=== PATIENT | female | born 1950 | race Caucasian/White ===

== ENCOUNTER 2019-07-09 12:53 | Outpatient (CLI) | payer BC, SELFPAY ==
--- NOTE | 2019-07-09 13:02 | XR_ITS ---
WS: [id number] RIBS LEFT TECHNIQUE: 3 views left ribs CLINICAL INFORMATION: RIB PAIN, LEFT SIDED COMPARISON: None. FINDINGS: Normal left ribs. No pneumothorax. Normal cardiac silhouette. Aortic calcification. XR/XR ribs LT 2V* [id number] IMPRESSION: No visualized left rib fractures
== END 2019-07-09 12:54 | disposition home or self-care (01) ==
LOC: RADWPI 13:00
PROVIDERS: Family Provider Electrodiagnostic Medicine; PCP Electrodiagnostic Medicine; Visit Provider Electrodiagnostic Medicine
DX: R07.81 Pleurodynia (principal)
CPT/HCPCS: 71100

== ENCOUNTER 2020-03-20 14:07 | Outpatient (CLI) | payer BC, SELFPAY ==
--- NOTE | 2020-03-20 14:16 | XR_ITS ---
WS: [id number] SCREENING DEXA SCAN [place] CLINICAL INFORMATION: OSTEOPOROSIS COMPARISON: None. FINDINGS: The L1-L4 bone mineral density measures 0.900 g/cm2. This corresponds to a T score score of -2.3 and Z score of -0.5. Left femoral neck bone mineral density measures 0.612 g/cm2. This corresponds to a T score of -3.1 an d Z score of -1.7. Right femoral neck bone mineral density measures 0.621 g/cm2. This corresponds to a T score -3.1of an d Z score of -1.6. Mean femoral neck bone mineral density measures 0.616 g/cm2. This corresponds to a T score of -3.1 an d Z score of -1.6. XR/XR DEXA axial skeleton* [id number] IMPRESSION: Osteoporosis Patient's FRAX calculated 10 year probability for major osteoporotic fracture i s 28.3 % and osteoporotic hip fracture is 13.7%.
== END 2020-03-20 14:08 | disposition home or self-care (01) ==
LOC: RADWPI 14:11
PROVIDERS: PCP Electrodiagnostic Medicine; Visit Provider Electrodiagnostic Medicine
DX: M81.0 Age-related osteoporosis without current pathological fracture (principal)
CPT/HCPCS: 77080

== ENCOUNTER 2020-04-29 14:46 | Outpatient (CLI) | payer BC, SELFPAY ==
--- NOTE | 2020-04-29 14:50 | MM_ITS ---
WS: [id number] BILATERAL DIGITAL SCREENING MAMMOGRAPHY WITH CAD CLINICAL INFORMATION: SCREENING HISTORY: Screening mammogram. No current complaints. COMPARISON: TECHNIQUE: Bilateral CC and MLO views. FINDINGS: The breasts are composed of heterogeneous fibroglandular density tissue, which can limit the detectio n of small underlying mass lesions. No suspicious mass, asymmetry, calcifications, or architectural d istortion. No evidence of malignancy. Punctate and vascular calcifications. Lucent centered calcifica tions. MM/[place] [id number] IMPRESSION: BI-RADS: 2-Benign FOLLOW UP: 1 Year Follow-up Recommend return to annual screening mammography.
== END 2020-04-29 14:47 | disposition home or self-care (01) ==
LOC: RADSHAW 14:49
PROVIDERS: PCP Electrodiagnostic Medicine; Visit Provider Electrodiagnostic Medicine
DX: Z12.31 Encounter for screening mammogram for malignant neoplasm of breast (principal)
CPT/HCPCS: 77067

== ENCOUNTER 2021-04-23 11:22 | Emergency (ER) | payer BC, SELFPAY ==
[2021-04-23 11:39] VITALS: BP 166/71; PULSE 71; RESP 16; TEMP 37; O2SAT 97
--- NOTE | 2021-04-23 14:42 | W.ED.ANIMALB ---
HPI - Animal Bite General: Chief Complaint: Animal Bite Stated Complaint: animal bite Time Seen by Provider: 04/23/21 11:45 History of Present Illness: HPI narrative: Patient was bit by her cat a couple days closed her right forearm. She also has some scratches. She has some redness around the bite now. Cat shots are up-to-date. Patient has multiple antibiotic allergies. MD complaint: animal bite Onset (ago): day(s) Animal: cat Description of animal: household pet Mechanism: bite and scratch Context: playing with animal Associated symptoms: Reports no associated symptoms; Deny chills or fever(s) Review of Systems Const: Denies: fever(s) or chills Musc: Denies: extremity pain Skin/Breast: Reports: erythema (Around bite mathews) and skin tenderness COUNTS INCLUDE 234 BEDS AT THE [facility] ED PFSH: Medical History HTN (hypertension) Family History Mother Hyperlipidemia Dementia Sister Hyperlipidemia Hypothyroidism Lymphoma Cancer renal carcinoma/lymphoma Grandmother Hypothyroidism Social History Smoking and tobacco status: current every day smoker Physical Exam Const: COMMON NORMALS: no acute distress GENERAL APPEARANCE: cooperative Psych: COMMON NORMALS: mental status grossly normal Skin: OTHER: Has 3 puncture wounds to right middle forearm with surrounding superficial redness around the bite started some bruising to her dry and thin skin. No red streaks extending up the arm. Course Vital Signs: Vital signs: Vital Signs Temperature 98.6 F 04/23/21 11:39 Pulse Rate 71 04/23/21 11:39 Respiratory Rate 16 04/23/21 11:39 Blood Pressure 166/71 04/23/21 11:39 Pulse Oximetry 97 04/23/21 11:39 MDM - Animal Bite MDM Narrative: Medical decision making narrative: We will try Bactrim due to multiple allergies that she has even though it is not the best antibiotic for cat bites or is not much else that is available due to her allergies. Discharge Plan Discharge Patient Disposition: Home Clinical Impression: Cat bite Qualifiers: Encounter type: initial encounter Qualified Code(s): W55.01XA - Bitten by cat, initial encounter Condition: Stable Prescriptions: New Bactrim DS 800-160 mg tablet 1 tab PO BID 7 Days Qty: 14 RF: 0 No Action diflunisal 500 mg tablet 500 mg PO BID PRNRF: 0 nitroglycerin [Nitrostat] 0.4 mg tablet, sublingual 0.4 mg SUBLINGUAL Q5M PRNRF: 0 esomeprazole magnesium 40 mg capsule,delayed release(DR/EC) 40 mg PO DAILY RF: 0 levothyroxine 125 mcg capsule 100 mcg PO DAILY RF: 0 cetirizine [Allergy Relief (cetirizine)] 10 mg tablet 10 mg PO DAILY RF: 0 dicyclomine 10 mg capsule 10 mg PO TID PRNRF: 0 teriparatide 20 mcg/dose (750 mcg/3 mL) pen injector 20 mcg SUBCUT DAILY RF: 0 montelukast [Singulair] 10 mg tablet 10 mg PO DAILY RF: 0 vitamin E 200 unit capsule 400 unit PO DAILY RF: 0 calcium carbonate-vitamin D3 [Calcium 600 with Vitamin D3] 600 mg(1,500mg) -500 unit capsule PO RF: 0 cholecalciferol (vitamin D3) 25 mcg (1,000 unit) capsule 25 mcg PO DAILY RF: 0 vitamin A palmitate 10,000 unit tablet 10,000 unit PO DAILY RF: 0 fish,bora,flax oils-om3,6,9no1 [Triple [place] 3-6-9] 400-400-400 mg capsule 1 cap PO DAILY RF: 0 poxywwmg-anbfh-pio6-C-jonathan-bor 869-020-21-0.5 mg tablet PO RF: 0 Hyaluronic Acid (chond-collgn) 40-80-400 mg capsule PO RF: 0 astaxanthin 4 mg capsule PO RF: 0 clopidogrel 75 mg tablet 75 mg PO DAILY Qty: 90 RF: 4 lisinopril 10 mg tablet 10 mg PO DAILY Qty: 90 RF: 4 Repatha SureClick 140 mg/mL pen injector 140 mg SUBCUT .Q2W Qty: 2 RF: 11 Discharge Orders: Discharge ED (Routine); Ordered 04/23/21 Ordered By: Bolivar Zavala Referrals: Enrico Rojas DO [Primary Care Provider] - Discharge Diet: Usual diet Discharge Activity: Increase activity as tolerated Patient Instructions: Animal Bite (ED) Activity Restrictions/Additional Instructions: Follow-up with medical provider as directed. Take medications as prescribed. Return to the ER or your medical provider if condition worsens. Please read and understand discharge instructions. If any questions ask please. Watch for worsening symptoms. Bactrim is low on the list for effective antibiotics for cat bites but it is one that is used. Due to multiple out to anti-biotic allergies this would be the most appropriate antibiotic for you .so if you have worsening symptoms please return and see your family medical provider. Coding Level of Care Code ED Polymer Scientist for Kelly Gresham
== END 2021-04-23 12:06 | disposition home or self-care (01) ==
PROVIDERS: Emergency Provider Nurse Practitioner Family; PCP Electrodiagnostic Medicine
DX: S51.851A Open bite of right forearm, initial encounter (principal); W55.01XA Bitten by cat, initial encounter
CPT/HCPCS: 99281

== ENCOUNTER → 2021-10-12 15:06 | Outpatient (BNVA) | payer BC, SELFPAY | PROVIDERS: PCP Electrodiagnostic Medicine; Visit Provider Internal Medicine Cardiovascular Disease | DX: I10 Essential (primary) hypertension (principal); R07.9 Chest pain, unspecified; E78.00 Pure hypercholesterolemia, unspecified | CPT/HCPCS: 36415; 80053; 80061; 83721; 84443; 85025 ==

== ENCOUNTER → 2022-04-04 08:23 | Outpatient (BNVA) | payer MEDICARE, OTHER, BC, SELFPAY | PROVIDERS: PCP Electrodiagnostic Medicine; Referring Provider Electrodiagnostic Medicine; Visit Provider Student in an Organized Health Care Education/Training Program | DX: M65.331 Trigger finger, right middle finger (principal) | CPT/HCPCS: 73130 ==

== ENCOUNTER 2022-04-11 11:49 | Outpatient (CLI) | payer MEDICARE, BC, SELFPAY ==
[2022-04-11 13:15] LABS: Alanine Aminotransferase 7 U/L (0-33); Albumin Level 3.9 g/dL (3.5-5.2); Alkaline Phosphatase 48 U/L (35-105); Aspartate Amino Transferase 11 U/L (0-32); Chol HDL Ratio 4.29 mg/dL (0.0-4.40); Cholesterol 206 mg/dL (0-200); Globulin 3.2 g/dL (1.3-4.6); HDL Cholesterol 48 mg/dL (60-100); LDL Cholesterol Calculated 128 mg/dL (50-129); LDL Cholesterol Direct 140 mg/dL (0-100); LDL HDL Ratio 2.67 RATIO (0.00-3.22); Total Bilirubin 0.4 mg/dL (0.15-1.2); Total Protein 7.1 g/dL (6.6-8.7); Triglycerides 152 mg/dL (0-150)
== END 2022-04-11 11:50 | disposition home or self-care (01) ==
PROVIDERS: PCP Electrodiagnostic Medicine; Visit Provider Internal Medicine Cardiovascular Disease
DX: E78.00 Pure hypercholesterolemia, unspecified (principal); I10 Essential (primary) hypertension; Z86.73 Personal history of transient ischemic attack (TIA), and cerebral infarction without residual deficits
CPT/HCPCS: 36415; 80061; 80076; 83721

== ENCOUNTER 2022-04-20 05:49 | Day surgery (SDC) | payer MEDICARE, BC, OTHER, SELFPAY ==
[2022-04-19 11:50] VITALS: BMI 22.6
[2022-04-20] VITALS (9 sets, daily range): BP systolic 100–135; BP diastolic 52–75; PULSE 50–62; RESP 12–18; TEMP 36.1–36.6; O2SAT 94–100
[2022-04-20] MEDS: sodium chloride 0.9% 1,000 ML 30 ML IV (06:29)
[2022-04-20] MEDS: acetaminophen 1,000 MG/100 ML PIGGYBACK 400 MG IV (06:30)
[2022-04-20] MEDS: ketorolac 30 mg/mL INJ IVP (06:48)
[2022-04-20] MEDS: clindamycin 600 MG/50 ML PREMIX 100 MG IV (07:00)
--- NOTE | 2022-04-20 07:05 | W.PM.OPSUD ---
Surgery/Procedure H&P Update DATE OF PROCEDURE: April 20, 2022 DATE H&P PERFORMED: 04/04/22 CHANGES TO PREVIOUS DOCUMENTATION: None PREOP DIAGNOSIS: Right middle finger trigger PRIMARY INDICATION FOR PROCEDURE: Right middle finger trigger PLANNED PROCEDURE: Operation Date: 04/20/22 07:00 Proposed Procedures p Right middle Finger Trigger Finger Release 48251 M65.331(Right) - Andres Dominguez DO
--- NOTE | 2022-04-20 07:35 | P.ANESASSM_ITS ---
Pre-Anesthetic Assessment Height/Weight: Height 1.68 m Weight 63.503 kg Temp Pulse Resp BP Pulse Ox O2 Del Method 97.4 F L 62 18 135/75 100 04/20/22 06:15 04/20/22 06:15 04/20/22 06:15 04/20/22 06:15 04/20/22 06:15 04/20/22 06:36 Preop Diagnosis: Right middle finger trigger Operation Date: 04/20/22 07:00 Proposed Procedures p Right middle Finger Trigger Finger Release 52978 M65.331(Right) - Andres Alberto, Familial anesthetic complications: Delayed awakening Was Beta Sharmaine taken within 24 hours: N/A Was Clonidine taken within 24 hours: N/A Last intake: Intake Last Liquid Date 04/19/22 Last Liquid Time 18:00 Last Solid Date 04/19/22 Last Solid Time 18:00 Social No alcohol and No tobacco Exam alert, oriented x 3, clear to auscultation bilaterally and regular rate & rhythm Airway Submandibular: within normal limits Cervical ROM: within normal limits Mallampati: Class II Dentition: partials CV/HEM Hypertension GI Gastroesophageal Reflux Disease Metabolic Hyperlipidemia and Thyroid Disease [facility] [place] Fibromyalgia Neuropsych Transient Ischemic Attack Anesthetic Plan ASA status: 3 Anesthesia: Choice Medications/Allergies Home Medications Medication Instructions Recorded Confirmed Last Taken Type diflunisal 500 mg tablet 500 mg PO BID 12/16/19 04/19/22 04/19/22 History esomeprazole magnesium 40 mg 40 mg PO DAILY 12/16/19 04/19/22 04/19/22 History capsule,delayed release nitroglycerin 0.4 mg sublingual 0.4 mg sublingual Q5M PRN cp 12/16/19 04/19/22 Unknown History tablet (Nitrostat) astaxanthin 4 mg capsule 4 mg PO DAILY 12/23/20 04/19/22 04/19/22 History calcium carbonate 600 mg-vitamin cap PO 12/23/20 04/04/22 04/19/22 History D3 12.5 mcg (500 unit) capsule (Calcium 600 with Vitamin D3) cholecalciferol (vitamin D3) 25 25 mcg PO DAILY 12/23/20 04/19/22 04/19/22 History mcg (1,000 unit) capsule clopidogrel 75 mg tablet 75 mg PO DAILY #90 tabs 12/23/20 04/19/22 04/19/22 Rx dicyclomine 10 mg capsule 10 mg PO TID 12/23/20 04/19/22 04/19/22 History fish, borage, flaxseed oils-omega 1 cap PO DAILY 12/23/20 04/19/22 04/19/22 History 3,6,9 cb #1 400 mg-400 mg-400 mg cap (Triple [place] 3-6-9) glucosamine 375 qd-odbuvkhhz-trb tab PO 12/23/20 04/04/22 04/19/22 History no1 500 mg-C 15 mg-jonathan 0.5 mg tablet hyalur ac-chond sul-colg II-AA 40 cap PO 12/23/20 04/04/22 04/19/22 History mg-80 mg-400 mg capsule (Hyaluronic Acid(with chondroitin-collagenII)) levothyroxine 125 mcg capsule 100 mcg PO DAILY 12/23/20 04/19/22 04/20/22 04:15 History teriparatide 20 mcg/dose (750 20 mcg SUBCUT DAILY 12/23/20 04/19/22 04/19/22 History mcg/3 mL) subcutaneous pen injector vitamin A palmitate 10,000 unit 10,000 unit PO DAILY 12/23/20 04/19/22 04/19/22 History tablet vitamin E 200 unit capsule 400 unit PO DAILY 12/23/20 04/19/22 04/19/22 History ihppega-fxpayzcz-oytszgaeom-folic tab PO 10/12/21 04/04/22 04/19/22 History acid 0.5 mg tablet lisinopril 10 mg tablet 10 mg PO DAILY #90 tabs 12/13/21 04/19/22 04/19/22 Rx evolocumab 140 mg/mL subcutaneous 140 mg SUBCUT .Q2W #2 mL 04/18/22 04/19/22 04/06/22 Rx pen injector (Repatha SureClick) varenicline 1 mg tablet (Chantix) 1 mg PO BID 04/20/22 04/20/22 04/19/22 History Allergies Allergy/AdvReac Type Severity Reaction Status Date / Time levofloxacin Allergy Intermediate Rash Verified 04/04/22 08:24 Cephalosporins Allergy ALGY-Hives Verified 04/04/22 08:24 codeine Allergy ALGY-Hives Verified 04/04/22 08:24 doxycycline Allergy ALGY-Hives Verified 04/04/22 08:24 erythromycin base Allergy ALGY-Hives Verified 04/04/22 08:24 Penicillins Allergy ALGY-Hives Verified 04/04/22 08:24 lovastatin AdvReac ADR-Muscle Verified 04/04/22 08:24 Pain pravastatin AdvReac ADR-Muscle Verified 04/04/22 08:24 Pain risedronate sodium AdvReac ADR-Muscle Verified 04/04/22 08:24 [From Actonel] Pain rosuvastatin [From Crestor] AdvReac ADR-Muscle Verified 04/04/22 08:24 Pain simvastatin AdvReac ADR-Muscle Verified 04/04/22 08:24 Pain Current Medications Generic Name Dose Route Start Last Admin Trade Name Freq PRN Reason Stop Dose Admin Sodium Chloride 1,000 mls @ 30 mls/hr 04/20/22 06:00 04/20/22 06:29 Sodium Chloride 0.9% IV 04/21/22 05:59 30 mls/hr .Q24H GAGANDEEP Administration PFSH Anesthesia Medical History (Updated 04/04/22 @ 14:58 by Andres Dominguez DO) Fibromyalgia History of TIA (transient ischemic attack) HTN (hypertension) Hypercholesterolemia Trigger finger, right middle finger Surgical History S/P appendectomy S/P hemorrhoidectomy S/P hysterectomy S/P lumpectomy of breast S/P tonsillectomy Family History Mother Hyperlipidemia Dementia Sister Hyperlipidemia Hypothyroidism Lymphoma Cancer renal carcinoma/lymphoma Grandmother Hypothyroidism Social History Smoking and tobacco status: current every day smoker Data Anesthesia Cardiac Studies: No Data to Display
--- NOTE | 2022-04-20 07:55 | PM.OP ---
Operative Report Date of procedure: April 24, 2022 Pre-op diagnosis: Preop Diagnosis Right middle finger trigger Post-op diagnosis: Same Procedure done: Right middle finger trigger release Surgeon: Andres Dominguez DO Estimated blood loss: 3mL 19min IV fluids: see anesthesia record Complications: none Findings: see operative report narrative Condition: stable Disposition: same day Brief History: Patient was seen and evaluated in the outpatient setting and findings consistent with a right middle finger trigger. She is failed conservative treatment and has severe triggering and catching we talked about nonoperative versus operative intervention. She understands the risk benefits complications and alternatives to surgical intervention. Understanding these risks she would like to proceed with surgical intervention. Patient understands and agrees to proceed with surgery of right middle finger trigger release. All questions answered. Procedure: Patient seen and evaluated in the preoperative holding area. Consent was reviewed and signed with patient. Correct extremity was then marked. Patient seen evaluated by anesthesia and plan for local with MAC. Once cleared by anesthesia she was taken back to the operative suite placed in the supine position on the OR table all bony prominences were well-padded. Patient was appropriately secured to the bed. Nonsterile tourniquet applied to the right upper extremity arm with the right arm on an armboard. Patient subsequently had the right upper extremity was then prepped and draped in standard orthopedic fashion. Final timeout performed. Patient received appropriate preoperative antibiotics. Esmarch tourniquet was used exsanguinate the right upper extremity to 250 mmHg. Patient had an oblique flexor crease at the right middle finger which was used as planned incision. Local anesthesia was used to perform a digital block of the right middle finger. Once confirmed to be anesthetized 15 blade scalpel was used to make an oblique incision within the distal flexor palm crease. Incision was made just through skin. I then switched to Littler dissection scissors. I mobilized it directly down onto the tendon and then utilized Kasdan retractors to protect my neurovascular bundles. I then noticed a very thickened A1 ai which was incised longitudinally with a scalpel. Once I entered the flexor tendon sheath there is significant synovial fluid no signs of infection. The tendons did have noticeable tenosynovitis and inflammation as well as some fraying but no significant tear. I then switched to Littler dissection scissors and released the A1 ai proximally and distally up to the A2 ai. At this point in time this completed the A1 ai release and a subsequently had the patient awakened from anesthesia and have her make a fist. She was noticed to still have a trigger this actually. To be more triggering proximally. As result I extended my incision proximally slightly more and then utilizing careful dissection under loupe magnification to not injure the arterial arch patient did have significant scarring with a more pronounced proximal A1 ai. This was subsequently released under direct loupe magnification with Littler dissection scissors. The tendon was then pulled through the wound and there was no triggering noted. I then had her make a fist. At this point there was no triggering and she had smooth glide of the tendon. Direct visualization of the A2 ai feel that there was no triggering occurring within the A2 ai when patient made fist. At this point time was satisfied with the trigger finger release. Inpatient visibly could see and noticed no triggering. This point time tourniquet was deflated. Hemostasis satisfactory with bipolar electrocautery. I then thoroughly irrigated the wound bed. The incision was then reapproximated with interrupted nylon suture. Incision covered with Xeroform and a bulky soft dressing. Patient was then taken from the OR to PACU in stable condition. Patient tolerated procedure without complications. Disposition: Patient taken to PACU in stable condition. She received appropriate discharge instructions as well as pain medication postoperatively. She will follow-up with me in the office in 2 weeks. Patient understands and agrees with current plan. All questions answered. She understands she has any questions she can contact the office.
--- NOTE | 2022-04-20 07:55 | PM.OP2 ---
Brief Operative Note Date of procedure: 04/20/22 Pre-op diagnosis: Right middle finger trigger Post-op diagnosis: same Procedure Done: Right middle finger trigger release Surgeon: Andres Dominguez Estimated blood loss (mL): 3 Complications: None Post-op Plan: Patient taken back in stable condition. Patient recovering well. Dressing on in place clean dry intact she received appropriate discharge structure as well as pain medication postoperatively. We will see her in the office in 2 weeks. Condition: stable Disposition: same day Coding Level of Care Code Acute Construction Trench Digger for Kelly Gresham
--- NOTE | 2022-04-20 07:57 | PM.PACU ---
PACU note Narrative: Patient taken to PACU in stable condition recovering well dressing on in place clean dry and intact. Fingertips warm well perfused. Patient received local anesthesia decree sensation to the right middle finger. Secondary to local block. Patient is able to wiggle fingers. Exam: awake Disposition: discharged
--- NOTE | 2022-04-20 15:32 | ANE.PACU2 ---
Inpatient post-anesthesia follow up: Airway intact: Yes Vital signs: Temperature 97 F Pulse Rate 50 Respiratory Rate 18 Blood Pressure 118/52 Pulse Oximetry 99 Oxygen Delivery Me thod Room Air Oxygen Flow Rate Fraction of Inspir ed Oxygen Hydration adequate: Yes Nausea and vomiting: No Pain level: 2 Mental status: Baseline
== END 2022-04-20 09:06 | disposition home or self-care (01) ==
PROVIDERS: PCP Electrodiagnostic Medicine; Visit Provider Student in an Organized Health Care Education/Training Program
PROC: (CPT 26055; principal; 2022-04-20 07:00)
DX: M65.331 Trigger finger, right middle finger (principal); I10 Essential (primary) hypertension; K21.9 Gastro-esophageal reflux disease without esophagitis; E78.5 Hyperlipidemia, unspecified; M79.7 Fibromyalgia; Z86.73 Personal history of transient ischemic attack (TIA), and cerebral infarction without residual deficits; E78.00 Pure hypercholesterolemia, unspecified; F17.210 Nicotine dependence, cigarettes, uncomplicated
CPT/HCPCS: 26055; J0131; J1885; J2370; J2704; J3010; J3490; J7030

== ENCOUNTER → 2022-05-09 09:46 | Outpatient (BNVA) | payer MEDICARE, BC, OTHER, SELFPAY | PROVIDERS: PCP Electrodiagnostic Medicine; Visit Provider Student in an Organized Health Care Education/Training Program | DX: M65.331 Trigger finger, right middle finger (principal) | CPT/HCPCS: 99024 ==

== ENCOUNTER → 2022-07-11 12:38 | Outpatient (BNVA) | payer MEDICARE, BC, OTHER, SELFPAY | PROVIDERS: PCP Electrodiagnostic Medicine; Visit Provider Student in an Organized Health Care Education/Training Program | DX: M65.331 Trigger finger, right middle finger (principal); M72.0 Palmar fascial fibromatosis [Dupuytren] | CPT/HCPCS: 20600; 99213 ==

== ENCOUNTER 2022-07-19 09:11 | Outpatient (RCR) | payer MEDICARE, OTHER, BC, SELFPAY | END 2022-07-29 23:59 | disposition home or self-care (01) | LOC: SOT 09:11 | PROVIDERS: PCP Electrodiagnostic Medicine; Visit Provider Student in an Organized Health Care Education/Training Program | DX: Z47.89 Encounter for other orthopedic aftercare (principal) | CPT/HCPCS: 97018; 97035; 97110; 97140; 97166 ==

== ENCOUNTER 2022-07-30 06:00 | Outpatient (RCR) | payer MEDICARE, BC, OTHER, SELFPAY | END 2022-08-28 23:59 | disposition home or self-care (01) | LOC: SOT 06:00 | PROVIDERS: PCP Electrodiagnostic Medicine; Visit Provider Student in an Organized Health Care Education/Training Program | DX: Z47.89 Encounter for other orthopedic aftercare (principal) | CPT/HCPCS: 97018; 97035; 97110; 97140 ==

== ENCOUNTER → 2022-08-22 15:14 | Outpatient (BNVA) | payer MEDICARE, OTHER, BC, SELFPAY | PROVIDERS: PCP Electrodiagnostic Medicine; Visit Provider Student in an Organized Health Care Education/Training Program | DX: M72.0 Palmar fascial fibromatosis [Dupuytren] (principal); M65.331 Trigger finger, right middle finger; M65.341 Trigger finger, right ring finger; M65.351 Trigger finger, right little finger | CPT/HCPCS: 99214 ==

== ENCOUNTER 2022-09-13 11:23 | Day surgery (SDC) | payer MEDICARE, OTHER, SELFPAY ==
[2022-09-12 11:59] VITALS: BMI 24.0
[2022-09-13] VITALS (7 sets, daily range): BP systolic 106–177; BP diastolic 56–70; PULSE 47–64; RESP 16–18; TEMP 36.1–36.3; O2SAT 96–100
--- NOTE | 2022-09-13 12:19 | ECG_ITS ---
[facility] Test Date: 2022-09-13 Pat Name: Camila Molina Department: Room: Gender: Female Nurse Emergency: : 1950 Requested By: Bekah Simmons Order Number: [id number] Edmonds MD: Ady Shrestha M.D. Measurements Intervals [place] Rate: 56 P: 75 NC: 140 QRS: 71 QRSD: 82 T: 68 QT: 429 QTc: 417 Interpretive Statements SINUS BRADYCARDIA NONSPECIFIC T-WAVE ABNORMALITY No previous ECG available for comparison Electronically Signed On 09-13-2022 16:58:32 CDT by Ady Shrestha M.D. [id number]
[2022-09-13] MEDS: ketorolac 30 mg/mL INJ IVP (12:22)
[2022-09-13] MEDS: sodium chloride 0.9% 1,000 ML 30 ML IV (12:23)
[2022-09-13] MEDS: acetaminophen 1,000 MG/100 ML PIGGYBACK 400 MG IV (12:23)
--- NOTE | 2022-09-13 12:25 | W.PM.OPSUD ---
Surgery/Procedure H&P Update DATE OF PROCEDURE: September 13, 2022 DATE H&P PERFORMED: 08/22/22 CHANGES TO PREVIOUS DOCUMENTATION: None. No change patient continues to have persistent triggering of the right middle finger with a MP flexion contracture of roughly 30 degrees secondary to development of Dupuytren's contracture she also has triggering noted at the A1 ai of the ring and small finger on the right hand as well. At this point time she understands her treatment options and plan to proceed with a right middle finger trigger release revision, FDS ulnar slip excision, palmar fascia and scar tissue excision, right ring finger trigger release, right small finger trigger release. Patient understands the risk benefits complication alternatives with surgery nonsurgical treatment options. Understanding risk of surgery she agrees to proceed. All questions answered. PREOP DIAGNOSIS: Right middle finger trigger, Dupuytren's contracture, right ring finger and PRIMARY INDICATION FOR PROCEDURE: Right middle finger recurrent trigger Development Dupuytren's MP flexion contracture right middle finger Right ring finger trigger Right small finger trigger PLANNED PROCEDURE: Operation Date: 09/13/22 13:10 Proposed Procedures p right ring finger trigger release:79638,M65.331,? M65.341,M65.351(Right) - Andres Dominguez, DO
[2022-09-13] MEDS: midazolam 1 mg/mL INJ 2 mL 2 MG IVP (13:34)
--- NOTE | 2022-09-13 13:34 | P.ANESASSM_ITS ---
Pre-Anesthetic Assessment Height/Weight: Height 1.68 m Weight 67.585 kg Temp Pulse Resp BP Pulse Ox O2 Del Method 97.3 F L 64 18 177/61 100 Room Air 09/13/22 12:01 09/13/22 12:01 09/13/22 12:01 09/13/22 12:01 09/13/22 12:01 09/13/22 12:07 Preop Diagnosis: Right middle finger trigger, Dupuytren's contracture, right ring finger and Operation Date: 09/13/22 13:10 Proposed Procedures p right ring finger trigger release:[id number],M65.331,? M65.341,M65.351(Right) - Andres Alberto, DO Familial anesthetic complications: Anesthesia leads to confusion for days Was Beta Sharmaine taken within 24 hours: N/A Was Clonidine taken within 24 hours: N/A Last intake: Intake Last Liquid Date 09/12/22 Last Liquid Time 20:00 Last Solid Date 09/12/22 Last Solid Time 17:30 Social No alcohol and No tobacco Exam alert, oriented x 3, clear to auscultation bilaterally and regular rate & rhythm Airway Mallampati: Class II Dentition: partials CV/HEM Hypertension GI Gastroesophageal Reflux Disease Metabolic Hyperlipidemia and Thyroid Disease [facility] Fibromyalgia Neuropsych Transient Ischemic Attack Anesthetic Plan ASA status: 3 Anesthesia: Choice Risk of > 500 ml blood loss (7ml/kg in children): No Medications/Allergies Home Medications Medication Instructions Recorded Confirmed Last Taken Type diflunisal 500 mg tablet 500 mg PO BID 12/16/19 09/12/22 09/11/22 History esomeprazole magnesium 40 mg 40 mg PO DAILY 12/16/19 09/12/22 09/11/22 History capsule,delayed release nitroglycerin 0.4 mg sublingual 0.4 mg sublingual Q5M PRN cp 12/16/19 09/12/22 Unknown History tablet (Nitrostat) calcium carbonate 600 mg-vitamin 600 cap PO 1XD 12/23/20 09/12/22 08/08/22 History D3 12.5 mcg (500 unit) capsule (Calcium 600 with Vitamin D3) dicyclomine 10 mg capsule 10 mg PO TID 12/23/20 09/12/22 09/11/22 History levothyroxine 125 mcg capsule 100 mcg PO DAILY 0809/12/22 09/12/22 History evolocumab 140 mg/mL subcutaneous 140 mg SUBCUT .Q2W #2 mL 04/18/22 09/12/22 09/08/22 Rx pen injector (Reginald Ken) clopidogrel 75 mg tablet 75 mg PO DAILY #90 tabs 09/05/22 09/12/22 09/07/22 Rx lisinopril 10 mg tablet 10 mg PO DAILY #90 tabs 09/05/22 09/12/22 09/11/22 Rx Allergies Allergy/AdvReac Type Severity Reaction Status Date / Time levofloxacin Allergy Intermediate Rash Verified 09/12/22 11:51 Cephalosporins Allergy ALGY-Hives Verified 09/12/22 11:51 codeine Allergy ALGY-Hives Verified 09/12/22 11:51 doxycycline Allergy ALGY-Hives Verified 09/12/22 11:51 erythromycin base Allergy ALGY-Hives Verified 09/12/22 11:51 Penicillins Allergy ALGY-Hives Verified 09/12/22 11:51 lovastatin AdvReac ADR-Muscle Verified 09/12/22 11:51 Pain pravastatin AdvReac ADR-Muscle Verified 09/12/22 11:51 Pain risedronate sodium AdvReac ADR-Muscle Verified 09/12/22 11:51 [From Actonel] Pain rosuvastatin [From Crestor] AdvReac ADR-Muscle Verified 09/12/22 11:51 Pain simvastatin AdvReac ADR-Muscle Verified 09/12/22 11:51 Pain Current Medications Generic Name Dose Route Start Last Admin Trade Name Freq PRN Reason Stop Dose Admin Sodium Chloride 1,000 mls @ 30 mls/hr 09/13/22 12:00 09/13/22 12:23 Sodium Chloride 0.9% IV 09/14/22 11:59 30 mls/hr .Q24H GAGANDEEP Administration PFSH Anesthesia Medical History Fibromyalgia History of TIA (transient ischemic attack) HTN (hypertension) Hypercholesterolemia Trigger finger, right middle finger Surgical History S/P appendectomy S/P hemorrhoidectomy S/P hysterectomy S/P lumpectomy of breast S/P tonsillectomy Family History Mother Hyperlipidemia Dementia Sister Hyperlipidemia Hypothyroidism Lymphoma Cancer renal carcinoma/lymphoma Grandmother Hypothyroidism Social History Smoking and tobacco status: current every day smoker Data Anesthesia Cardiac Studies: No Data to Display
[2022-09-13] MEDS: clindamycin 600 MG/50 ML PREMIX 100 MG IV (14:35)
--- NOTE | 2022-09-13 16:49 | PM.OP2 ---
Brief Operative Note Date of procedure: 09/13/22 Pre-op diagnosis: Right middle finger recurrent trigger , right middle finger Post-op diagnosis: same (Right ring and small finger trigger) Procedure Done: Right middle finger palmar fascia/Dupuytren's excision of MP joint Right middle finger trigger release revision Right middle finger scar tissue excision Right middle finger flexor digitorum superficialis ulnar slip excision Right ring finger trigger release Right small finger trigger release Surgeon: Andres Dominguez Estimated blood loss (mL): 10 Complications: None Post-op Plan: Patient taken to PACU in stable condition recovering well. Patient receive appropriate discharge instructions as well as pain medication postoperatively. Patient has volar splint on in place: Fingers into extension. Patient we will get aggressively and OT hand therapy to work on range of motion as well as for making up at night splints for full extension for her to wear at night. We will get them working on her with scar maturation. Patient at this point time to be nonweightbearing to the right hand and will encourage range of motion as tolerated. Patient to follow-up in the orthopedic office in 2 weeks. Condition: stable Disposition: same day Coding Level of Care Code Acute Code for Kelly Gresham
--- NOTE | 2022-09-13 16:50 | P.OP_ITS ---
Operative Report Date of procedure: September 13, 2022 Pre-op diagnosis: Preop Diagnosis Right middle finger trigger, Dupuytren's contracture, right ring finger and Post-op diagnosis: Right middle finger recurrent trigger Right middle finger MP Dupuytren's contracture 30 degrees Right ring finger trigger Right small finger trigger Procedure done: Right middle finger palmar fascia/Dupuytren's excision of MP joint Right middle finger trigger release revision Right middle finger scar tissue excision Right middle finger flexor digitorum superficialis ulnar slip excision Right ring finger trigger release Right small finger trigger release Surgeon: Andres Dominguez DO Anesthesia: MAC (Local) Estimated blood loss: 10 mL 67 minutes IV fluids: 800 mL Complications: None Findings: See operative report narrative Condition: stable Disposition: same day Brief History: Camila is a pleasant 72-year-old female who had subsequently had a right middle finger trigger that underwent a right middle finger trigger release back in 04/20/2022. She had overall done extremely well and had regained near full full range of motion as well as no recurrent triggering at her 2-week follow-up v isit. At that point time she had done extremely well and subsequently at roughly 2 months out she developed a palpable cord and contracture of the MP joint as well as in flexion she began to have recurrence of triggering with dense noticeable scar tissue as well as pain that was propagating approximately she also developed associated right ring finger and small finger triggers. We talked about her treatment options she underwent a corticosteroid injection on 07/11/2022 and started in formal therapy to see how she responded. Unfortunately she only had a short-term relief with the corticosteroid injection pertaining to pain but minimal improvement with her therapy and continue to have recurrent trigger. At this point in time we talked about her treatment options and given this is continually affecting her daily living and she has developed Dupuytren's contracture and has have a recurrent trigger she would like to proceed with surgical intervention my recommendation at this point in time would be for a right middle finger trigger release revision with plan for flexor digitorum superficialis ulnar slip excision as well as for excision of the palmar fascia/Dupuytren's cord to allow for better MP range of motion as well as scar tissue removal and subsequently ring and small finger trigger releases as these have begun to become problematic and painful for the patient. She understands the ins and outs of the procedure the risk benefits complication alternatives with surgical treatment options. Understanding risk of surgery she elects to proceed. All questions answered. Consent obtained. Procedure: Patient seen evaluated in the preoperative holding area. Consent was reviewed and signed with patient. Patient correct extremity and digits were then subsequently marked. Patient was then seen eval by anesthesia apartment plan was going to be for MAC with local with plan to wake patient up from MAC to assess for finger range of motion and no triggering. Patient understands the importance of this and agrees to proceed. Once cleared for surgery by anesthesia she was taken back to the operative suite. She was then transported onto the OR table in supine position all bony prominences well-padded patient was appropriate secured to the bed. Armboard was applied to the right upper extremity. Underwent anesthesia per the anesthesia department once appropriately anesthetized the right upper extremity had a nonsterile tourniquet applied to the right upper arm. Once this was applied the right upper extremity was then prepped and draped in standard orthopedic fashion. Final timeout performed. Patient received appropriate preoperative antibiotics. Esmarch tourniquet was used exsanguinate the right upper extremity. Tourniquet was insufflated 250 mmHg. I subsequently planned on starting with the right middle finger. Previous incision was noted and I subsequently mapped out a extensive incision utilizing Belen technique extending this distally to the insertions of the FDS tendon as well as taking this up proximally to the beginning of patient's palpable Dupuytren cords. I then utilized sharp scalpel excision starting with my initial incision and following a Belen fashion this previously described plan taken just through skin. I switched Littler dissection scissors made a complete dissection of the middle finger. And appropriate skin flaps and these were then sutured appropriately for full visualization I then identified the palpable Dupuytren's cord and palmar fascia aiding in patient's MP contracture. At this point in time I then subsequently placed a hemostat and made sure that I was only under the palmar fascia I then transected the palmar fascia proximally and then held this up with my pickups of the Dupuytren's cord and then subsequently utilizing dissection scissors Bovie as well as scalpel performed a complete excision of this palmar fascia and cord to the MP joint. This was done with care of initially dissecting out the the common and digital neurovascular bundles and protected these throughout the case patient did not have a spiral cord at this time and as a result there is no crossing over of the neurovascular bundles. Next I then identified the dense scar tissue over the previous trigger release site. I then performed an complete scar tissue excision over top of the A2 ai as well as the previous A1 ai patient had already developed a new thickened A1 ai with dense scar tissue which the A1 ai was then released with Littler dissection scissors. I then thoroughly inspected the tendon and proximally patient had palmar aponeurosis around the tendons proximally as well as creating thickened sheath around these tendons this was excised to its entirety and the tendons were completely free. The A2 ai integrity was left intact. I then identified the chiasm and split of the radial and ulnar slips of the FDS tendon. Given patient's had a recurrence and has significant triggering I elected to proceed with the FDS ulnar slip excision I placed a PDS suture around the ulnar slip and with my dissection distally made just a small transver se incision into the tendon sheath and then subsequently passed a Wilson suture passer and pulled the PDS suture out of the sheath distally I then transected the ulnar slip proximally and then pulled the PDS suture to deliver the FDS tendon through this site I then subsequently excised the desiccation with it in the radial slip to isolate just the ulnar slip of the FDS tendon and then I took this to the base of its insertion and then transected the FDS slip. This was significantly thickened tendon and inflamed. I then utilized a rag nail on the FDS and FDP tendons and took the patient's finger through range of motion there was smooth gliding no evidence of bowstringing and correction of patient's flexion contracture I did mobilize the MP joint to assess its mobility and see if it was supple full range of motion it did appear that I think her joint has become somewhat adhered she had a subtle 5 degree flexion contracture still after the Dupuytren's release. At this point in time I then made 2 separate incisions longitudinally over the ring and small finger. Sharp scalpel incision was made through skin and then switched to Littler dissection scissors to the ring finger first spreading longitudinally in the plane of the A1 ai and then I placed Kasdan retractors to protect my neurovascular bundles and then subsequently performed an A1 ai release the tendon was then delivered out of the incision no triggering was noted tendon was inflamed but overall healthy. Next I then performed the same procedure to the small finger Littler dissection scissors were spread longitudinally over subcutaneous fat Ragnell's were then applied protect neurovascular bundle and I had direct visualization of the flexor tendon sheath in the beginning of the A1 ai I then excised the A1 ai with Littler dissection scissors up to the A2 ai and at this point in time had complete release. Delivered to the tendons through the incision site with a rag nail and they were overall healthy but inflammation was noted. At this point in time I had anesthesia awaken patient for assessment. Once awake from anesthesia she was able to verbalize and follow commands I had her open and close her pulm she confirmed and it was visible that there was no recurrent triggering on the middle finger ring finger or small finger this had satisfactory release. I then subsequently had anesthesia placed patient back to MAC sedation tourniquet was deflated hemostasis was satisfactory and fingertips are warm well-perfused with brisk capillary refill less than 2 seconds. Thoroughly irrigation was then performed of the wound beds. I then closed the incision with simple interrupted nylon suture to both the middle ring and small finger. Incision was then covered with Xeroform 4 x 4's Curlex ABD and a short arm splint was then applied holding the fingers in full extension. Moustapha wrap applied. Patient was awakened from anesthesia and taken to PACU in stable condition. Disposition: Patient taken to PACU in stable condition recovering well.? Patient receive appropriate discharge instructions as well as pain medication postoperatively.? Patient has volar splint on in place: Fingers into extension.? Patient we will get aggressively and OT hand therapy to work on range of motion as well as for making up at night splints for full extension for her to wear at night.? We will get them working on her with scar maturation.? Patient at this point time to be nonweightbearing to the right hand and will encourage range of motion as tolerated.? Patient to follow-up in the orthopedic office in 2 weeks.
--- NOTE | 2022-09-13 16:50 | PM.PACU ---
PACU note Narrative: Patient taken to PACU in stable condition. Pain controlled. Patient fingertips are warm well-perfused brisk capillary refill less than 2 seconds she endorses decreased sensation to the finger secondary to local anesthesia. Splint on in place and limits examination his fingers are held in full extension. Exam: awake Disposition: discharged
[2022-09-13] MEDS: HYDROmorphone 1 mg/mL INJ 1 mL 0.5 MG IVP (17:07)
[2022-09-13] MEDS: HYDROcodone-acetaminophen 5-325 mg Tablet 1 TAB PO (17:28)
== END 2022-09-13 17:50 | disposition home or self-care (01) ==
PROVIDERS: PCP Electrodiagnostic Medicine; Visit Provider Student in an Organized Health Care Education/Training Program
PROC: (CPT 26055; principal; 2022-09-13 13:00)
DX: M65.341 Trigger finger, right ring finger (principal); M65.331 Trigger finger, right middle finger; M72.0 Palmar fascial fibromatosis [Dupuytren]; M65.351 Trigger finger, right little finger; I10 Essential (primary) hypertension; K21.9 Gastro-esophageal reflux disease without esophagitis; E78.5 Hyperlipidemia, unspecified; E03.9 Hypothyroidism, unspecified; Z86.73 Personal history of transient ischemic attack (TIA), and cerebral infarction without residual deficits; Z79.02 Long term (current) use of antithrombotics/antiplatelets; M79.7 Fibromyalgia; F17.200 Nicotine dependence, unspecified, uncomplicated
CPT/HCPCS: 26055 ×3; 26123; 93005; J0131; J1170; J1885; J2250; J2704; J2795; J3010; J3490; J7030

== ENCOUNTER 2022-09-15 11:32 | Outpatient (RCR) | payer MEDICARE, OTHER, SELFPAY | END 2022-09-28 23:59 | disposition home or self-care (01) | LOC: SOT 11:32 | PROVIDERS: PCP Electrodiagnostic Medicine; Visit Provider Student in an Organized Health Care Education/Training Program | DX: Z47.89 Encounter for other orthopedic aftercare (principal) | CPT/HCPCS: 97022; 97110; 97140; 97167; 97530; L3906 ==

== ENCOUNTER → 2022-09-19 11:01 | Outpatient (BNVA) | payer MEDICARE, OTHER, SELFPAY | PROVIDERS: PCP Electrodiagnostic Medicine; Visit Provider Internal Medicine Cardiovascular Disease | DX: R07.9 Chest pain, unspecified (principal); I10 Essential (primary) hypertension; E78.00 Pure hypercholesterolemia, unspecified; Z86.73 Personal history of transient ischemic attack (TIA), and cerebral infarction without residual deficits; M79.7 Fibromyalgia; F17.200 Nicotine dependence, unspecified, uncomplicated | CPT/HCPCS: 99214 ==

== ENCOUNTER → 2022-09-27 13:40 | Outpatient (BNVA) | payer MEDICARE, OTHER, SELFPAY | PROVIDERS: PCP Electrodiagnostic Medicine; Visit Provider Nurse Practitioner Family | DX: M72.0 Palmar fascial fibromatosis [Dupuytren] (principal); M65.341 Trigger finger, right ring finger; M65.351 Trigger finger, right little finger; M65.331 Trigger finger, right middle finger | CPT/HCPCS: 99024 ==

== ENCOUNTER 2022-09-29 06:00 | Outpatient (RCR) | payer MEDICARE, OTHER, SELFPAY | END 2022-10-28 23:59 | disposition home or self-care (01) | LOC: SOT 06:00 | PROVIDERS: PCP Electrodiagnostic Medicine; Visit Provider Student in an Organized Health Care Education/Training Program | DX: M65.331 Trigger finger, right middle finger (principal) | CPT/HCPCS: 97022; 97035; 97110; 97140 ==

== ENCOUNTER → 2022-10-24 13:48 | Outpatient (BNVA) | payer MEDICARE, OTHER, SELFPAY | PROVIDERS: PCP Electrodiagnostic Medicine; Visit Provider Student in an Organized Health Care Education/Training Program | DX: M72.0 Palmar fascial fibromatosis [Dupuytren] (principal); M65.341 Trigger finger, right ring finger; M65.351 Trigger finger, right little finger; M65.331 Trigger finger, right middle finger | CPT/HCPCS: 99024; 99213 ==

== ENCOUNTER 2022-10-29 06:00 | Outpatient (RCR) | payer MEDICARE, OTHER, SELFPAY | END 2022-11-28 23:59 | disposition home or self-care (01) | LOC: SOT 06:00 | PROVIDERS: PCP Electrodiagnostic Medicine; Visit Provider Student in an Organized Health Care Education/Training Program | DX: M65.331 Trigger finger, right middle finger (principal) | CPT/HCPCS: 97022; 97035; 97110; 97140 ==

== ENCOUNTER 2022-11-29 06:00 | Outpatient (RCR) | payer MEDICARE, OTHER, SELFPAY | END 2022-12-29 23:59 | disposition home or self-care (01) | LOC: SOT 06:00 | PROVIDERS: PCP Electrodiagnostic Medicine; Visit Provider Student in an Organized Health Care Education/Training Program | DX: Z47.89 Encounter for other orthopedic aftercare (principal) | CPT/HCPCS: 97022; 97035; 97110; 97140 ==

== ENCOUNTER 2022-12-30 06:00 | Outpatient (RCR) | payer MEDICARE, OTHER, SELFPAY | END 2023-01-28 23:59 | disposition home or self-care (01) | LOC: SOT 06:00 | PROVIDERS: PCP Electrodiagnostic Medicine; Visit Provider Student in an Organized Health Care Education/Training Program | DX: Z47.89 Encounter for other orthopedic aftercare (principal) | CPT/HCPCS: 97022; 97035; 97110; 97140; G0283 ==

== ENCOUNTER 2023-01-29 06:00 | Outpatient (RCR) | payer MEDICARE, OTHER, SELFPAY | END 2023-02-28 23:59 | disposition home or self-care (01) | LOC: SOT 06:00 | PROVIDERS: PCP Electrodiagnostic Medicine; Visit Provider Student in an Organized Health Care Education/Training Program | DX: M65.331 Trigger finger, right middle finger (principal) | CPT/HCPCS: 97022; 97035; 97110; 97140 ==

== ENCOUNTER 2023-03-01 06:00 | Outpatient (RCR) | payer MEDICARE, OTHER, SELFPAY | END 2023-03-30 23:59 | disposition home or self-care (01) | LOC: SOT 06:00 | PROVIDERS: PCP Electrodiagnostic Medicine; Visit Provider Student in an Organized Health Care Education/Training Program | DX: M65.331 Trigger finger, right middle finger (principal) | CPT/HCPCS: 97022; 97035; 97110; 97140 ==

== ENCOUNTER → 2023-04-14 08:54 | Outpatient (BNVA) | payer MEDICARE, OTHER, SELFPAY | PROVIDERS: PCP Electrodiagnostic Medicine; Visit Provider Student in an Organized Health Care Education/Training Program | DX: M72.0 Palmar fascial fibromatosis [Dupuytren] (principal); M65.341 Trigger finger, right ring finger; M65.351 Trigger finger, right little finger; M65.331 Trigger finger, right middle finger | CPT/HCPCS: 99213 ==

== ENCOUNTER 2023-05-11 13:37 | Outpatient (CLI) | payer MEDICARE, OTHER, SELFPAY ==
--- NOTE | 2023-05-11 13:42 | XR_ITS ---
WS: [id number] DEXA (DUAL ENERGY X-RAY ABSORPTIOMETRY) Bone mineral density was performed using a Pixalate machine. HISTORY: OSTEOPOROSIS COMPARISON: 03/20/2020 Lumbar spine BMD (L1-L4): 0.963 g/cm2 T score: -1.8 Z score: -0.3 Total hip BMD: Left: 0.625 g/cm2. T score: -3.0 Z score: -1.6 Right: 0.625 g/cm2. T score: -3.0 Z score: -1.6 10 year probability of a major osteoporotic fracture is 42.4%. Compared to the prior study from 03/20/2020. Lumbar spine bone mineral density has increased by 7.0%. Bilateral hips bone mineral density has increased by 1.5%. IMPRESSION: OSTEOPOROSIS based upon the WHO classification for females. Significant increase in bone mineral density within the lumbar spine since the prior study.
== END 2023-05-11 13:38 | disposition home or self-care (01) ==
LOC: RAD 13:39
PROVIDERS: PCP Electrodiagnostic Medicine; Visit Provider Electrodiagnostic Medicine
DX: M81.0 Age-related osteoporosis without current pathological fracture (principal)
CPT/HCPCS: 77080

== ENCOUNTER 2023-06-09 12:37 | Outpatient (CLI) | payer MEDICARE, OTHER, SELFPAY ==
--- NOTE | 2023-06-09 13:06 | MM_ITS ---
WS: [id number] BILATERAL 3D TOMOSYNTHESIS DIGITAL SCREENING MAMMOGRAPHY WITH CAD CLINICAL INFORMATION: SCREEN HISTORY: Screening mammogram. No current complaints. COMPARISON: 2020 TECHNIQUE: Bilateral CC and MLO views. FINDINGS: The breasts are composed of heterogeneous fibroglandular density tissue, which can limit the detectio n of small underlying mass lesions. No suspicious mass, asymmetry, calcifications, or architectural d istortion. No evidence of malignancy. Vascular calcifications. A few incidental punctate and lucent c entered calcifications. IMPRESSION: MM/[place] [id number] BI-RADS: 2-Benign FOLLOW UP: 1 Year Follow-up Recommend return to annual screening mammography.
== END 2023-06-09 12:38 | disposition home or self-care (01) ==
LOC: RAD 12:37
PROVIDERS: PCP Electrodiagnostic Medicine; Visit Provider Electrodiagnostic Medicine
DX: Z12.31 Encounter for screening mammogram for malignant neoplasm of breast (principal)
CPT/HCPCS: 77063; 77067

== ENCOUNTER → 2023-09-13 09:57 | Outpatient (BNVA) | payer MEDICARE, OTHER, SELFPAY | PROVIDERS: PCP Electrodiagnostic Medicine; Visit Provider Nurse Practitioner Family | DX: I10 Essential (primary) hypertension (principal); Z86.73 Personal history of transient ischemic attack (TIA), and cerebral infarction without residual deficits; E78.00 Pure hypercholesterolemia, unspecified; Z87.891 Personal history of nicotine dependence | CPT/HCPCS: 99214 ==

== ENCOUNTER 2023-09-27 09:29 | Outpatient (CLI) | payer MEDICARE, OTHER, SELFPAY ==
--- NOTE | 2023-09-27 09:45 | USCV_ITS ---
Camila Molina Age: 73 Gender: F : 1950 Exam Date: 09/27/2023 09:38 Ordering Phys: Eliz Mendez Technologist: Exam Location: [facility] – [place] Indication: BILAT BRUIT Risk Factors: Previous Vascular Surgery: Right Brachial BP: / Left Brachial BP: / Right Left Velocity (cm/s) Spectral Plaque Velocity (cm/s) Spectral Plaque Syst/Diast Broadening Syst/Diast Broadening 90.60/ 18.30 Hetro Prox CCA 78.70 / 18.20 Hetro 81.30/ 16.50 Hetro Mid CCA 89.70 / 23.70 Hetro 55.30/ 10.90 Hetro Distal CCA 89.70 / 19.60 Hetro 73.20/ 25.50 Hetro Prox ICA 79.70 / 14.00 Hetro 102.60/27.30 Hetro Mid ICA 85.00 / 26.50 Hetro 78.70/ 20.00 Distal ICA 77.90 / 17.60 Hetro 111.80 ECA 99.30 1.90 ICA/CCA 0.90 Antegrade Vertebral Antegrade 49.40/ 14.50 cm/s 70.80/ 8.70 cm/s Tri Subclavian Tri 130.1 120.6 0 0 CONCLUSIONS Right ICA stenosis <50%. Moderate calcified atheromatous plaque Left ICA stenosis <50%. Moderate calcified atheromatous plaque Intimal thickening in the common carotid arteries and internal carotid arteries bilaterally. Eccentric plaque RIGHT mid CCA Normal antegrade Doppler flow noted in the right vertebral artery. Normal antegrade Doppler flow noted in the left vertebral artery. Vinod Chowdhury MD (Electronically Signed) Final Date: 27 Sep 2023 13:56 S
== END 2023-09-27 09:30 | disposition home or self-care (01) ==
LOC: RAD 09:29
PROVIDERS: PCP Electrodiagnostic Medicine; Visit Provider Nurse Practitioner Family
DX: I65.23 Occlusion and stenosis of bilateral carotid arteries (principal); Z86.73 Personal history of transient ischemic attack (TIA), and cerebral infarction without residual deficits
CPT/HCPCS: 93880

== ENCOUNTER → 2023-10-16 13:50 | Outpatient (BNVA) | payer MEDICARE, OTHER, SELFPAY | PROVIDERS: PCP Electrodiagnostic Medicine; Visit Provider Internal Medicine Cardiovascular Disease | DX: I10 Essential (primary) hypertension (principal); E78.00 Pure hypercholesterolemia, unspecified; R01.1 Cardiac murmur, unspecified; Z87.891 Personal history of nicotine dependence | CPT/HCPCS: 99214 ==

== ENCOUNTER 2023-11-08 09:36 | Outpatient (CLI) | payer MEDICARE, OTHER, SELFPAY ==
[2023-11-08 11:24] LABS: Chol HDL Ratio 3.21 mg/dL (0.0-4.40); Cholesterol 122 mg/dL (0-200); HDL Cholesterol 38 mg/dL (60-100); LDL Cholesterol Calculated 51 mg/dL (50-129); LDL HDL Ratio 1.34 RATIO (0.00-3.22); Triglycerides 167 mg/dL (0-150)
== END 2023-11-08 09:37 | disposition home or self-care (01) ==
LOC: LAB 09:39
PROVIDERS: PCP Electrodiagnostic Medicine; Visit Provider Internal Medicine
DX: E78.00 Pure hypercholesterolemia, unspecified (principal)
CPT/HCPCS: 36415; 80061

== ENCOUNTER 2023-11-10 10:30 | Outpatient (CLI) | payer MEDICARE, OTHER, SELFPAY ==
--- NOTE | 2023-11-10 09:54 | CT_ITS ---
WS: [id number] CT HEAD TECHNIQUE: Noncontrast and contrast-enhanced CT of the head. CLINICAL INFORMATION: CHRONIC LARYNGITIS/HEADACHE/PAIN IN THROAT COMPARISON: CT 2017 DLP: 2104.[address] scans at [facility] use at least one of these dose optimization techniques: automated e xposure control; mA and/or kV adjustment per patient size (includes targeted exams where dose is matc hed to clinical indication); or iterative reconstruction. FINDINGS: No evidence intracranial hemorrhage or mass effect. Ventricular system and basal cisterns are patent. Mild small vessel changes. Mild parenchymal volume loss. Intracranial vascular calcification. Mild mucosal thickening in the paranasal sinuses. Trace fluid in the sphenoid sinus. Mastoid air cell s are well aerated. No abnormal intracranial enhancement. No enhancing intracranial lesions. No other acute findings. CT/CT head wo/w con [id number] IMPRESSION: 1. No evidence of intracranial hemorrhage or mass effect. 2. No abnormal intracranial enhancement. 3. Vascular calcification. 4. Mild small vessel changes with mild parenchymal volume loss.
[2023-11-10 10:43] LABS: Blood Urea Nitrogen 14 mg/dL (8-23)
[2023-11-10] MEDS: iohexol 350 mg/mL 500 mL Btl (per mL) IV (11:32)
== END 2023-11-10 10:31 | disposition home or self-care (01) ==
PROVIDERS: PCP Electrodiagnostic Medicine; Visit Provider Otolaryngology
DX: R51.9 Headache, unspecified (principal); J37.0 Chronic laryngitis; R07.0 Pain in throat; I67.89 Other cerebrovascular disease; J34.89 Other specified disorders of nose and nasal sinuses
CPT/HCPCS: 70470; 82565; 84520; Q9967

== ENCOUNTER → 2023-11-14 13:50 | Outpatient (CLI) | payer MEDICARE, OTHER, SELFPAY ==
--- NOTE | 2023-11-14 14:15 | USCV_ITS ---
Camila Molina Age: 73 Gender: F : 1950 Exam Date: 11/14/2023 14:14 Ordering Phys: Eliz Mendez Technologist: [place] [facility] [place]: murmur BP: 162 / 69 HR: 62 Rhythm: Sinus Technical Quality: Adequate MEASUREMENTS (Male / Female) Normal Values 2D ECHO LVOT Diameter 2.0 cm LV Ejection Fraction MOD 4C 59.9 % LV Ejection Fraction MOD 2C 56.3 % LV Ejection Fraction 2C AL 60.8 % LA Diameter 3.0 cm RA Systolic Volume 4C AL 22.3 ml RA Systolic Volume 4C MOD 22.6 ml LA Sys Volume AL 44.7 cm cubed LA Sys Volume Index AL 24.0 cm cubed/m squared Aorta at Sinotubular Diameter 2.0 cm IVC Diameter 2.0 cm M-MODE LA Ao Ratio MM 1.1 AV Cusp Separation MM 2.0 cm DOPPLER AV Peak Velocity 147.0 cm/s LVOT Peak Velocity 114.0 cm/s AV Area Cont Eq vti 2.7 cm squared AV Area Cont Eq pk 2.5 cm squared MV Peak Velocity 121.0 cm/s MV Area PHT 3.2 cm squared Mitral E to A Ratio 0.8 TR Peak Velocity 284.5 cm/s TR Peak Gradient 32.4 mmHg TR Mean Velocity 201.0 cm/s TR Mean Gradient 19.0 mmHg TR Velocity Time Integral 68.3 cm TV Peak E Velocity 89.0 cm/s Right Atrial Pressure 3.0 mmHg Pulmonary Artery Systolic Pressu 35.4 mmHg PV Peak Velocity 107.5 cm/s FINDINGS Left Ventricle Normal left ventricular size, systolic function and wall thickness, with no regional wall motion abnormalities. Grade I/IV diastolic dysfunction (abnormal relaxation filling pattern), normal to mildly elevated filling pressures. Left ventricular ejection fraction is estimated at 65 %. Right Ventricle Normal right ventricular size and systolic function. Normal right ventricular systolic pressure. Right Atrium The right atrium is normal in size. Left Atrium The left atrium is normal in size. Mitral Valve Structurally normal mitral valve. Trace mitral valve regurgitation. Aortic Valve Structurally normal aortic valve without significant sclerosis or stenosis. There is no aortic regurgitation. Tricuspid Valve Structurally normal tricuspid valve without significant stenosis or regurgitation. Pulmonary artery systolic pressure is normal. Pulmonic Valve Pulmonic valve not well visualized. Pericardium Normal pericardium without effusion. Aorta Normal ascending aorta dimension. IVC The inferior vena cava appears normal. CONCLUSIONS Normal left ventricular size, systolic function and wall thickness, with no regional wall motion abnormalities. Grade I/IV diastolic dysfunction (abnormal relaxation filling pattern), normal to mildly elevated filling pressures. Left ventricular ejection fraction is estimated at 65 %. Structurally normal mitral valve. Trace mitral valve regurgitation. No change from the previous echo in 2017 Dr. Andres Villanueva MD (Electronically Signed) Final Date: 15 November 2023 08:11 S
== END | disposition home or self-care (01) ==
LOC: RAD 13:49
PROVIDERS: PCP Electrodiagnostic Medicine; Visit Provider Nurse Practitioner Family
DX: I50.30 Unspecified diastolic (congestive) heart failure (principal); R01.1 Cardiac murmur, unspecified
CPT/HCPCS: 93306

== ENCOUNTER 2023-11-28 06:42 | Outpatient (CLI) | payer MEDICARE, OTHER, SELFPAY ==
--- NOTE | 2023-11-28 07:05 | US_ITS ---
WS: [id number] THYROID ULTRASOUND HISTORY: PAIN IN THROAT COMPARISON: 09/30/2011 Right lobe: 0.9 cm x 0.8 cm x 1.9 cm (w x ap x l). Volume: 0.7 cm3. It is very difficult to identify thyroid tissue. The thyroid is decreased in size and is very heterog eneous and echogenic. No discrete mass identified. No increased vascularity. Left lobe: 0.7 cm x 1.0 cm x 2.1 cm (w x ap x l). Volume: 0.7 cm3. It is very difficult to identify thyroid tissue. Small caliber thyroid and very heterogeneous. Isthmus: 0.2 cm. US/US thyroid [id number] IMPRESSION: 1. Ill-defined thyroid. It is very difficult to identify thyroid tissue in the thyroid beds. This is new since 09/29/2021. 2. Heterogeneous thyroid with no discrete well-formed mass.
== END 2023-11-28 06:43 | disposition home or self-care (01) ==
LOC: RAD 06:42
PROVIDERS: PCP Electrodiagnostic Medicine; Visit Provider Otolaryngology
DX: R07.0 Pain in throat (principal); E07.89 Other specified disorders of thyroid
CPT/HCPCS: 76536

== ENCOUNTER 2023-12-19 12:53 | Outpatient (CLI) | payer MEDICARE, OTHER, SELFPAY ==
--- NOTE | 2023-12-19 12:57 | MR_ITS ---
WS: [id number] MRI NECK WITH CONTRAST TECHNIQUE: Noncontrast axial T1, axial T2 FSE fat sat, coronal T2 fat sat, coronal T1, coronal T1 fat sat, sagittal T2 fat sat, plus contrast enhanced coronal, sagittal, and axial T1 fat sat images obta ined. CLINICAL INFORMATION: Chronic laryngitis, pain in throat COMPARISON: None. FINDINGS: Normal posterior fossa. Normal vascular flow voids at the skull base. Proximal 7th and 8th cranial ne rves appear normal. Paranasal sinuses and mastoid air cells are well aerated. Normal visualized poste rior nasopharynx. Parotid glands are normal. Normal submandibular glands. Few slightly prominent cerv ical lymph nodes largest measuring 8 to 9 mm nonspecific but may be reactive. Some images degraded due to dental artifact. The visualized thoracic inlet appears normal. Poor visua lization of the small thyroid also described on the recent thyroid ultrasound. No evidence of supraglottic or glottic mass. Normal vallecula and epiglottis. Normal piriform sinuses . Normal glottis. Subglottic airway appears patent. Moderate spondylitic changes cervical spine with mild disc bulging C3-C4 C4-C5 C5-C6 and C6-C7 MR/MR orbit face neck wo/w* [id number] IMPRESSION: 1. No evidence of supraglottic or glottic mass. 2. Normal salivary glands. 3. A few prominent cervical lymph nodes largest measuring 8 to 9 mm not pathol ogically enlarged and may be reactive. 4. Mild disc bulging cervical spine described above.
== END 2023-12-19 12:54 | disposition home or self-care (01) ==
LOC: RAD 12:55
PROVIDERS: PCP Electrodiagnostic Medicine; Visit Provider Specialist
DX: J37.0 Chronic laryngitis (principal); R07.0 Pain in throat
CPT/HCPCS: 70543; A9577

== ENCOUNTER 2024-03-01 07:37 | Outpatient (CLI) | payer MEDICARE, OTHER, SELFPAY ==
--- NOTE | 2024-03-01 07:58 | NM_ITS ---
WS: [id number] NUCLEAR MEDICINE GASTRIC EMPTYING EXAMINATION HISTORY: DYSPHAGIA COMPARISON: None available. TECHNIQUE: The patient ingested a meal containing 1.0 mCi of Tc 99m sulfur colloid mixed with eggs. The patient was placed in supine position and imaging over the abdomen was performed for a total of 9 0 minutes. Computer acquisition with the region of interest placed over the stomach to evaluate gastr ic emptying half-time. Normal linear emptying of the stomach. 50% emptying of the stomach at 100 minutes. At 120 minutes 60% emptying. NM/[place] [id number] IMPRESSION: No evidence for gastroparesis. Normal gastric emptying.
== END 2024-03-01 07:38 | disposition home or self-care (01) ==
LOC: RAD 07:39
PROVIDERS: PCP Electrodiagnostic Medicine; Visit Provider Electrodiagnostic Medicine
DX: R13.10 Dysphagia, unspecified (principal)
CPT/HCPCS: 78264; A9541

== ENCOUNTER 2024-03-20 11:20 | Outpatient (CLI) | payer MEDICARE, OTHER, SELFPAY ==
--- NOTE | 2024-03-20 11:22 | FL_ITS ---
WS: [id number] Exam: FL barium swallow modifd [id number] Date/Time of Exam: 03/20/2024 11:40 AM Reason For Exam: Other dysphagia Fluoroscopy time: 2min [id number] minutes # of spot films: 0 Modified barium swallow test was performed in conjunction with the speech therapy service. Oropharyngeal phase of swallowing was grossly normal. The patient tolerated all consistencies of lakia um mixture foodstuffs without aspiration or penetration. The patient swallowed a barium tablet withou t difficulty. FL/FL barium swallow modifd [id number] IMPRESSION: 1. No aspiration or penetration identified. A separate report and recommendations will follow from the speech therapy servi ce.
== END 2024-03-20 11:21 | disposition home or self-care (01) ==
LOC: RAD 11:21
PROVIDERS: PCP Electrodiagnostic Medicine; Visit Provider Electrodiagnostic Medicine
DX: R13.10 Dysphagia, unspecified (principal)
CPT/HCPCS: 74230; 92611

== ENCOUNTER 2024-06-26 10:50 | Outpatient (CLI) | payer MEDICARE, OTHER, SELFPAY ==
--- NOTE | 2024-06-26 10:58 | MM_ITS ---
WS: [id number] BILATERAL SCREENING DIGITAL TOMOSYNTHESIS MAMMOGRAM WITH CAD HISTORY: SCREENING COMPARISON: 06/09/2023, 04/29/2020 Bilateral CC and MLO views with tomosynthesis and synthetic mammography submitted. Computer aided detection analyzed. Breast composition: The breasts are heterogeneously dense, which may obscure small masses. No suspicious masses, microcalcifications or architectural distortion. Moderate breast arterial calcifications. There are additional benign-appearing calcifications within each breast. MM/MM [facility] tomosynthesis [id number] IMPRESSION: BI-RADS: 2 - Benign FOLLOW UP: 1 Year Follow-up
== END 2024-06-26 10:51 | disposition home or self-care (01) ==
PROVIDERS: PCP Electrodiagnostic Medicine; Visit Provider Electrodiagnostic Medicine
DX: Z12.31 Encounter for screening mammogram for malignant neoplasm of breast (principal); R92.333 Mammographic heterogeneous density, bilateral breasts; R92.1 Mammographic calcification found on diagnostic imaging of breast
CPT/HCPCS: 77063; 77067

== ENCOUNTER → 2024-10-15 12:39 | Outpatient (BNVA) | payer MEDICARE, OTHER, SELFPAY | PROVIDERS: PCP Electrodiagnostic Medicine; Visit Provider Internal Medicine | DX: R01.1 Cardiac murmur, unspecified (principal); I10 Essential (primary) hypertension; E78.00 Pure hypercholesterolemia, unspecified; Z86.73 Personal history of transient ischemic attack (TIA), and cerebral infarction without residual deficits; Z79.02 Long term (current) use of antithrombotics/antiplatelets; Z87.891 Personal history of nicotine dependence | CPT/HCPCS: 99214 ==